=== PATIENT | female | born 1995 | race Caucasian/White ===

== ENCOUNTER → 2020-08-06 | Outpatient (CLI) | payer SELFPAY | LOC: M LABSMTC 13:56 | PROVIDERS: ATTEND Pediatrics | DX: Z20.828 Contact with and (suspected) exposure to other viral communicable diseases (principal) ==

== ENCOUNTER → 2020-09-17 | Outpatient (CLI) | payer SELFPAY | LOC: M LABSMTC 11:02 | PROVIDERS: ATTEND Pediatrics | DX: Z20.822 Contact with and (suspected) exposure to COVID-19 (principal) ==

== ENCOUNTER → 2025-07-10 | Outpatient (CLI) | payer OTHER | LOC: M RAD 12:18 | PROVIDERS: ATTEND Physician Assistant | DX: M25.572 Pain in left ankle and joints of left foot (principal); M25.571 Pain in right ankle and joints of right foot ==